=== PATIENT | male | born 1960 | race Caucasian/White ===

== ENCOUNTER → 2019-12-01 10:43 | Outpatient (CLI) | payer BC, SELFPAY ==
--- NOTE | ~2019-12-01 | XR_ITS ---
XR hip BI wo pelvis DATE: 12/01/2019 11:11 INDICATION: Bilateral hip pain TECHNIQUE: Upright AP and lateral views of each hip COMPARISON: None FINDINGS: There is mild osteoarthritic spurring of both femoral heads, left greater than right, consi stent with mild to moderate bilateral hip osteoarthritis. No fracture, dislocation, avascular necrosis or bone destruction is detected. Surgical clips overlie the prostate bed. The pubic symphysis is intact. Sacroiliac joints are not well demonstrated. IMPRESSION: Mild to moderate bilateral hip osteoarthritis Reviewed, dictated and finalized at location A.
--- NOTE | ~2019-12-01 | XR_ITS ---
EXAMINATION: XR knee LT min 4V DATE: 12/01/2019 11:11 INDICATION: Left knee pain. TECHNIQUE: 4 views of left knee were obtained. COMPARISON: Left tibia and fibula radiographs 09/19/2004 FINDINGS: Bone alignment is normal. No fracture. There is mild tricompartmental osteoarthritis. No kn ee joint effusion. IMPRESSION: 1. Mild left knee osteoarthritis. Reviewed, dictated and finalized at location B.
--- NOTE | ~2019-12-01 | XR_ITS ---
EXAMINATION: XR knee RT min 4V DATE: 12/01/2019 11:11 INDICATION: Right knee pain. TECHNIQUE: 4 views of right knee were obtained. COMPARISON: None. FINDINGS: Bone alignment is normal. No fracture. There is mild tricompartmental osteoarthritis. No kn ee joint effusion. IMPRESSION: 1. Mild right knee osteoarthritis. Reviewed, dictated and finalized at location B.
== END ==
PROVIDERS: PCP Family Medicine; Visit Provider Family Medicine
DX: M16.0 Bilateral primary osteoarthritis of hip (principal); M17.0 Bilateral primary osteoarthritis of knee
CPT/HCPCS: 73521; 73564

== ENCOUNTER 2020-03-17 01:26 | Outpatient (CLI) | payer BC, SELFPAY ==
[2020-03-17 21:24] LABS: SARS-CoV-2 RNA PCR Negative
== END 2020-03-17 01:27 | disposition home or self-care (01) ==
LOC: ANHCOVIDDT 01:26
PROVIDERS: PCP Family Medicine; Visit Provider Internal Medicine Gastroenterology
DX: Z01.812 Encounter for preprocedural laboratory examination (principal); Z20.828 Contact with and (suspected) exposure to other viral communicable diseases
CPT/HCPCS: 87635; C9803; U0003

== ENCOUNTER 2020-03-20 01:28 | Day surgery (SDC) | payer BC, SELFPAY ==
[2020-03-10 09:12] VITALS: BMI 29.0
[2020-03-20 07:21] VITALS: BP 147/95; PULSE 79; RESP 20; TEMP 36.8; O2SAT 98; BMI 29.4
[2020-03-20] MEDS: LACTATED RINGERS 1,000 ML 150 ML IV CONT (07:36)
--- NOTE | 2020-03-20 07:54 | WPDGICN ---
Assessment and Plan Assessment and plan (1) Encounter for screening colonoscopy: Code(s): Z12.11 - Encounter for screening for malignant neoplasm of colon Status: Acute Assessment and Plan: Patient presents for screening colonoscopy. He appears to be at average risk for colon polyps. GI Consult Note Consult date/time: 03/20/20 07:54 HPI: John Mg is a 59 year old male Seen in evaluation at the request of Dr. Hayden Mixon. patient presents for needing neoplasia screening. Patient's current weight appetite bowel movements are normal. He denies abdominal pain. He has had normal bowel movements. His family history is noncontributory. Presents today for screening colonoscopy. Review of Systems Review of Systems: All systems reviewed & are unremarkable except as noted in HPI and below PMFSH Past Medical History Medical History (Updated 03/20/20 @ 07:55 by Jhony Teague MD) Anxiety Hypertension Family History Family History (Updated 12/16/13 @ 07:13 by DOCTOR UNKNOWN) Sibling Family history of blood dyscrasia Other Hypertension Social History Social History Smoking status: Never smoker Alcohol intake: current Drinks per week: 2 Alcohol use details: MAY HAVE 1 OR 2 DRINKS PER WEEK Substance use: never Substance use type: does not use Living arrangements: with family Spiritual care concerns: No Meds Home Medications and Allergies Home Medications Medication Instructions Recorded Confirmed Type amlodipine 5 mg PO DAILY 03/10/20 03/10/20 History losartan 100 mg PO DAILY 03/10/20 03/10/20 History oxybutynin chloride 15 mg PO DAILY 03/10/20 03/10/20 History tamsulosin 0.4 mg PO DAILY 03/10/20 03/10/20 History Allergies Allergy/AdvReac Type Severity Reaction Status Date / Time No Known Allergies Allergy Verified 03/20/20 07:20 Vital Signs Vital Signs - 24 hr 03/20/20 07:21 Temperature 98.2 F Pulse Rate 79 Respiratory Rate 20 Blood Pressure 147/95 H Pulse Oximetry 98 Exam Narrative: Exam Narrative: Physical exam reveals Vital Signs to be stable. HEENT exam unremarkable. Lungs are clear to auscultation and percussion. Heart is without murmur or extra sounds. Abdominal exam bowel sounds are present soft nontender with no organomegaly. Digital external rectal exam is normal.
--- NOTE | 2020-03-20 07:54 | WPDANESEPPF ---
Anes - Initial Pre Proc Eval Procedure: Operation Date: 03/20/20 08:30 Proposed Procedures p Screening Colonoscopy - Jhony Teague MD Date/Time: 03/20/20 07:54 Surgeon: Jhony Teague MD Pre Op Diagnosis: Neoplasm Screening Patient Data Age: 59 Gender: M Height: 5 ft 7 in Weight: 85.3 kg Last Vital Signs Temp 98.2 F 03/20/20 07:21 Pulse 79 03/20/20 07:21 Resp 20 03/20/20 07:21 BP 147/95 H 03/20/20 07:21 Pulse Ox 98 03/20/20 07:21 Allergies Allergy/AdvReac Type Severity Reaction Status Date / Time No Known Allergies Allergy Verified 03/20/20 07:20 Home Medications Medication Instructions Recorded Confirmed Type amlodipine 5 mg PO DAILY 03/10/20 03/10/20 History losartan 100 mg PO DAILY 03/10/20 03/10/20 History oxybutynin chloride 15 mg PO DAILY 03/10/20 03/10/20 History tamsulosin 0.4 mg PO DAILY 03/10/20 03/10/20 History Patient hx anesthesia problems: none Family hx anesthesia problems: none PMFSH Past Medical History Medical History (Updated 03/20/20 @ 07:53 by Jerrell Reynolds MD) Anxiety Hypertension Family History Family History (Updated 12/16/13 @ 07:13 by DOCTOR UNKNOWN) Sibling Family history of blood dyscrasia Other Hypertension Social History Social History Smoking status: Never smoker Alcohol intake: current Drinks per week: 2 Alcohol use details: MAY HAVE 1 OR 2 DRINKS PER WEEK Substance use: never Substance use type: does not use Living arrangements: with family Spiritual care concerns: No Anes - Eval Final PreProcedure Day of Procedure 03/20/20 07:54 Patient weight: normal Heart: regular rate and rhythm Lungs: clear to auscultation Airway: Mallampati scale class II Neurological: alert and oriented Last oral intake: >/= 8 hours ASA classification: II Emergent: no Anesthetic plan: proceed Anesthesia type and monitoring: general GIVS and standard monitoring Informed Consent: The patient's anesthetic plan and its attendant risks and benefits were discussed with the patient/family/POA. Questions were solicited and answers provided to the satisfaction of the patient/family/POA.
[2020-03-20 08:14] VITALS: BP 101/64; PULSE 66; RESP 25; O2SAT 98
[2020-03-20 08:24] VITALS: BP 114/43; PULSE 69; RESP 21; O2SAT 97
[2020-03-20 08:34] VITALS: BP 125/89; PULSE 71; RESP 24; O2SAT 98
== END 2020-03-20 08:40 | disposition home or self-care (01) ==
PROVIDERS: PCP Family Medicine; Visit Provider Internal Medicine Gastroenterology
PROC: 0DJD8ZZ Inspection of Lower Intestinal Tract, Via Natural or Artificial Opening Endoscopic (ICD-10-PCS; CPT 45378; principal; 2020-03-20 08:30)
DX: Z12.11 Encounter for screening for malignant neoplasm of colon (principal); I10 Essential (primary) hypertension; F41.9 Anxiety disorder, unspecified; K64.8 Other hemorrhoids
CPT/HCPCS: 45378; J2001; J2704; J7120

== ENCOUNTER → 2020-12-01 15:12 | Outpatient (CLI) | payer BC, SELFPAY ==
--- NOTE | ~2020-12-01 | XR_ITS ---
EXAMINATION: XR foot RT min 3V DATE: 12/01/2020 15:31 INDICATION: Right foot injury. TECHNIQUE: 4 views of right foot were obtained. COMPARISON: None. FINDINGS: Bone alignment is normal. No fracture. There is mild osteoarthritis of first metatarsophala ngeal joint and some of the midfoot joints. There are enthesophytes at the posterior and plantar aspe cts of calcaneal tuberosity. IMPRESSION: 1. Mild polyarticular osteoarthritis. Reviewed, dictated and finalized at location A.
--- NOTE | ~2020-12-01 | XR_ITS ---
EXAMINATION: XR ankle RT 2V DATE: 12/01/2020 15:32 INDICATION: Right foot injury. TECHNIQUE: 2 views of right ankle were obtained. COMPARISON: None. FINDINGS: Bone alignment is normal. No fracture. There is mild midfoot osteoarthritis. There are enth esophytes at the posterior and plantar aspects of calcaneal tuberosity. IMPRESSION: 1. Mild midfoot osteoarthritis. Reviewed, dictated and finalized at location A.
== END ==
PROVIDERS: PCP Internal Medicine; Visit Provider Internal Medicine
DX: S99.929A Unspecified injury of unspecified foot, initial encounter (principal); M19.071 Primary osteoarthritis, right ankle and foot
CPT/HCPCS: 73600; 73630

== ENCOUNTER 2022-05-16 10:02 | Outpatient (CLI) | payer BC, SELFPAY ==
--- NOTE | ~2022-05-16 | US_ITS ---
EXAMINATION: US soft tissue head and neck DATE: 05/16/2022 10:39 INDICATION: Localized swelling, mass and lump, neck. Lump posterior to left ear. TECHNIQUE: Multiple grayscale and Doppler ultrasound images of the head and neck were obtained. COMPARISON: Head CT 09/28/2009 FINDINGS: Posterior to the left ear, there is a 4.0 x 1.6 x 2.8 cm mass that is hypoechoic to subcuta neous fat. IMPRESSION: 1. 4.0 cm mass posterior to the left ear, which may be benign or malignant. Neck CT with contrast is recommended. Reviewed, dictated and finalized at location A. L CLEANER IMPRESSION: 1. 4.0 cm mass posterior to the left ear, which may be benign or malignant. Nec k CT with contrast is recommended.
== END 2022-05-16 10:03 | disposition home or self-care (01) ==
PROVIDERS: PCP Internal Medicine; Visit Provider Nurse Practitioner
DX: R22.1 Localized swelling, mass and lump, neck (principal)
CPT/HCPCS: 76536

== ENCOUNTER 2022-06-03 07:41 | Outpatient (CLI) | payer BC, SELFPAY ==
--- NOTE | ~2022-06-03 | CT_ITS ---
EXAMINATION: CT soft tissue neck w con DATE: 06/03/2022 08:13 INDICATION: Neck mass. TECHNIQUE: Computed tomography (CT) of the neck was performed with 75 mL Omnipaque-350 intravenous co ntrast. Automated exposure control and iterative reconstruction technique were employed. The dose-ifeanyi gth product was 596.16 mGy-cm. COMPARISON: Ultrasound 05/16/2022 FINDINGS: There is a 2.4 x 1.1 x 3.4 cm intramuscular lipoma in the left posterior neck posterior to the left mastoid process. There are no pathologically enlarged lymph nodes. There is 0% stenosis of t he proximal internal carotid arteries relative to normal distal artery lumen diameters. There is muco sai thickening in the paranasal sinuses. The mastoid air cells are normal. There is moderate cervical spondylosis. IMPRESSION: 1. 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 Reviewed, dictated and finalized at location A. ITY ASSURANCE IMPRESSION: 1. 3.4 cm intramuscular lipoma in the left posterior neck correlating with the ultrasound abnormality.
[2022-06-03 08:07] LABS: Estimated Glomerular Filt Rate > 60
== END 2022-06-03 07:42 | disposition home or self-care (01) ==
PROVIDERS: PCP Internal Medicine; Visit Provider Nurse Practitioner
DX: D17.9 Benign lipomatous neoplasm, unspecified (principal)
CPT/HCPCS: 70491; Q9967

== ENCOUNTER 2022-07-29 00:03 | Day surgery (SDC) | payer BC, SELFPAY ==
[2022-07-22 14:39] VITALS: BMI 30.4
--- NOTE | 2022-07-22 14:53 | PC.NURSE ---
Report to the Outpatient Waiting Room, entrance under the green pavilion located off [facility], at time _1130 on date _07/29/22_. Planned Procedure Time: _1330- . Time changes happen often and if your time is changed the preop area will call you the afternoon before. - You and your visitor will be asked to self-screen and do not enter if you have any COVID symptoms. - Only one visitor is requested with a max of two and NO children visitors are allowed at this time. - The patient visitor may be requested to leave or wait in car when not with patient due to distancing restrictions. - A mask is optional within the hospital at this time. Patients may have clear liquids (water, carbonated beverages, clear teas, apple juice) until 3 hours prior to surgery with a maximum of 20 ounces. - No food from midnight until time of surgery Take the following medications with a SIP of water the morning of surgery: __TAKE YOUR MEDS AT NIGHT PER USUAL DO NOT STOP ANY OF YOUR OTHER PRESCRIPTION MEDICATIONS PRIOR TO SURGERY ?EXCEPT THE FOLLOWING Medications to discontinue per physician N/A Date to take last dose___N/A Please no make-up, nail danish, hairspray, perfume, deodorant, or body powder the day of surgery. No jewelry (including any body piercings) or valuables the day of surgery, leave them at home. Please take a shower or bath the night before, or the morning of, surgery with an antibacterial soap. Wear comfortable, loose fitting clothing. - Jewelry must be removed prior to entering the operating room. Rings and piercings that are not removed may be cut off. - The hospital will not accept responsibility for valuables. - Please leave all valuables, including medications, at home the day of surgery. If you are going home after surgery, a licensed public transit bus driver must drive you home. - NO public transportation without another adult if you receive anesthesia. - We recommend that an adult stay with you for 24 hours following discharge. - We also recommend that you do not drive, make important decision, drink alcoholic beverages, or take any drugs that were not prescribed by your health care provider for at least 24 hours after your discharge time. Follow any additional instructions given to you from your surgeon If you or anyone in your household have experienced Covid symptoms in the past week, please notify your surgeon or the nurse liaison at the phone number below for possible testing. Telephone instructions given to _DANTE__and asked if any additional questions and then verbalized understanding. Patient advised to call surgeon office or pre surgery nurse liaison [phone] if any additional questions.
[2022-07-29 11:50] VITALS: BP 145/87; PULSE 79; RESP 16; TEMP 36.4; O2SAT 97
--- NOTE | 2022-07-29 12:16 | WPDANESEPPF ---
Anes - Initial Pre Proc Eval Procedure: Operation Date: 07/29/22 13:30 Proposed Procedures p Excision Intramuscular Left Posterior Neck Mass - Ney Chávez DO Date/Time: 07/29/22 12:16 Surgeon: Ney Chávez DO Pre Op Diagnosis: 4 cm Mass Left Posterior Neck Patient Data Age: 61 Gender: M Height: 1.7 m Weight: 90 kg Last Vital Signs Temp 36.4 C 07/29/22 11:50 Pulse 79 07/29/22 11:50 Resp 16 07/29/22 11:50 BP 145/87 H 07/29/22 11:50 Pulse Ox 97 07/29/22 11:50 O2 Del Method Room Air 07/29/22 11:50 Allergies Allergy/AdvReac Type Severity Reaction Status Date / Time No Known Allergies Allergy Verified 07/29/22 12:17 Home Medications Medication Instructions Recorded Confirmed Type tamsulosin 0.4 mg capsule 0.4 mg PO DAILY 03/10/20 07/29/22 History amlodipine 5 mg tablet 5 mg PO DAILY #90 tabs 06/25/22 07/29/22 Rx losartan 100 mg tablet 100 mg PO DAILY #90 tabs 06/25/22 07/29/22 Rx Patient hx anesthesia problems: none Family hx anesthesia problems: none Results Review: All pre-operative results and documents have been reviewed as part of the pre-operative evaluation. REPLACED BY [facility] Past Medical History Medical History Anxiety Hypertension Surgical History Surgical History History of inguinal hernia repair, bilateral History of prostate surgery Family History Family History Sibling Family history of blood dyscrasia Father Stomach cancer Other Hypertension Social History Social History Smoking status: Never smoker Second hand tobacco smoke exposure: No Alcohol intake: never Substance use: never Substance use type: does not use Lack of Transportation: No Lack of Food: Never True Concerned About Future Housing: No Difficulty Paying Gas/Electric Bills: No Difficulty Paying for Meds: No Currently Unemployed: No Education: High School Diploma/GED Difficulty w/ Childcare or Family Care: No Living arrangements: with family Spiritual care concerns: No Anes - Eval Final PreProcedure Day of Procedure 07/29/22 12:16 Patient weight: obese Heart: regular rate and rhythm Lungs: clear to auscultation Airway: Mallampati scale class III Neurological: alert and oriented Last oral intake: >/= 8 hours ASA classification: III Emergent: no Anesthetic plan: proceed Anesthesia type and monitoring: general ETT and standard monitoring Results Review: All pre-operative results and documents have been reviewed as part of the pre-operative evaluation. Informed Consent: The patient's anesthetic plan and its attendant risks and benefits were discussed with the patient/family/POA. Questions were solicited and answers provided to the satisfaction of the patient/family/POA.
[2022-07-29] MEDS: LACTATED RINGERS 1,000 ML 30 ML IV CONT (12:42)
--- NOTE | 2022-07-29 13:27 | WPDHPUPDATE1 ---
History and Physical Update Update Date/Time: 07/29/22 13:27 History and Physical has been reviewed, including an updated exam of the patient. There are NO changes in the patient's condition. Risks, benefits, and alternatives have been discussed and questions answered. Patient agrees to proceed with procedure.
--- NOTE | 2022-07-29 13:27 | PM.IMHP ---
H&P: HPI History of Present Illness Date/Time: 07/29/22 13:27 Chief Complaint: Posterior neck mass Narrative: This is a 61-year-old man presents for posterior neck mass excision. He denies any changes since last seen in the office. Review of Systems Review of Systems: All systems reviewed & are unremarkable except as noted in HPI and below Constitutional: Constitutional: Denies chills, Denies fever(s), Denies headache(s) and Denies weight loss Eyes: Eyes: Denies change in vision ENT: Denies dizziness, Denies headache(s), Denies neck mass and Denies throat swelling Cardiovascular: Cardiovascular: Denies chest pain, Denies lightheadedness and Denies dyspnea Respiratory: Respiratory: Denies cough, Denies dyspnea and Denies wheezing Gastrointestinal: Gastrointestinal: Denies abdominal pain, Denies change in bowel habits, Denies nausea and Denies vomiting Genitourinary: Genitourinary: Denies hematuria and Denies dysuria Musculoskeletal: Musculoskeletal: Reports as per HPI Integumentary/Breasts: Skin/Breast: Reports as per HPI Neurologic: Denies dizziness and Denies headache(s) Allergic/Immunologic: Allergic/Immunologic: Denies throat swelling and Denies wheezing PMFSH Past Medical History Medical History Anxiety Hypertension Surgical History Surgical History History of inguinal hernia repair, bilateral History of prostate surgery Family History Family History Sibling Family history of blood dyscrasia Father Stomach cancer Other Hypertension Social History Social History Smoking status: Never smoker Second hand tobacco smoke exposure: No Alcohol intake: never Substance use: never Substance use type: does not use Lack of Transportation: No Lack of Food: Never True Concerned About Future Housing: No Difficulty Paying Gas/Electric Bills: No Difficulty Paying for Meds: No Currently Unemployed: No Education: High School Diploma/GED Difficulty w/ Childcare or Family Care: No Living arrangements: with family Spiritual care concerns: No Meds Home Medications and Allergies Home Medications Medication Instructions Recorded Confirmed Type tamsulosin 0.4 mg capsule 0.4 mg PO DAILY 03/10/20 07/29/22 History amlodipine 5 mg tablet 5 mg PO DAILY #90 tabs 06/25/22 07/29/22 Rx losartan 100 mg tablet 100 mg PO DAILY #90 tabs 06/25/22 07/29/22 Rx Allergies Allergy/AdvReac Type Severity Reaction Status Date / Time No Known Allergies Allergy Verified 07/29/22 12:17 Vital Signs Vital Signs - 24 hr 07/29/22 11:50 Temperature 36.4 C Pulse Rate 79 Respiratory Rate 16 Blood Pressure 145/87 H Pulse Oximetry 97 Oxygen Delivery Room Air Exam Const: General: no acute distress and alert Orientation/consciousness: patient oriented x3 HENMT: Head: normocephalic and atraumatic Ears: hearing grossly normal bilaterally Face/Nose/Sinus: Normal nares present Mouth: Yes Normal oral and palatal mucosa present Eyes: Periorbital: periorbital findings normal Sclera: sclerae normal EOM: EOMs intact bilaterally Neck: Neck: normal visual inspection, no lymphadenopathy and trachea midline Chest: Chest palpation & inspection: normal inspection of the chest Resp: Effort & Inspection: normal respiratory effort Auscultation: clear to auscultation bilaterally Cardio: Jugular venous distension: no JVD Rate: regular rate Rhythm: regular rhythm Heart sounds: S1 normal heart sound present and S2 normal heart sound present Peripheral pulses: Peripheral pulses 2+ throughout GI: Inspection: normal to inspection GI Palp: Yes Soft to palpation, No Tenderness to palpation present (GI), No Guarding due to palpation present (GI) and No Rebound tenderness present Percussion:
[2022-07-29] MEDS: ceFAZolin 2 GM/D5W 50 ML 2 GM/50 ML BAG IVPB (13:42)
[2022-07-29] MEDS: LIDO 1%/EPINEPHRINE 1:100,000 50 ML VIAL 30 ML INFILTRATE (14:03)
--- NOTE | 2022-07-29 14:26 | P.OP_ITS ---
Procedure Note - Detailed Date of Procedure 07/29/22 Pre-op Diagnosis 4 cm Mass Left Posterior Neck Post-op Diagnosis Same Procedure Performed 1. Excision of 4 cm intramuscular left posterior neck mass 2. Layered closure Surgeon Ney Chávez, DO Anesthesia MAC and Local (1% lidocaine with epinephrine) Indications This is a 61-year-old man who presents with a left posterior mass that he just noticed a couple months ago. He has had ultrasound and CT which has shown evidence of what is likely a lipoma within the intramuscular region in the left posterior neck near the base of the skull. He has some discomfort in the area and feels that it has gotten slightly larger. Discussions were made with the pa walter about treatment options and decision was made to proceed with excision 4 cm intramuscular left posterior neck mass. Findings Excision of 4 cm intramuscular left posterior neck mass was performed. The mass appeared to be in the left posterior neck near the base of the skull within the posterior attachment of the left sternocleidomastoid muscle. The mass appeared to be a lipoma. It was completely excised and sent to the lab for pathology. A layered closure was then performed using 2-0 Vicryl simple interrupted sutures in the fascia followed by 4-0 Monocryl running subcuticular suture. Description of Procedure Procedure as well as risks, benefits, and alternatives were discussed with the patient. Written consent was obtained and placed in chart prior to procedure. Patient was brought back to surgical suite. He was placed in right lateral decubitus position. Time-out was done to confirm patient and procedure. IV sedation was then administered by the anesthesia department. His left posterior neck region was prepped and draped in sterile fashion using chlorhexidine prep. 1% lidocaine with epinephrine was infiltrated locally around mass. A 4 cm oblique incision was then made over the mass using a 15 blade scalpel. Electrocautery was used for hemostasis and for dissection through subcutaneous tissue. The fascia overlying the left sternocleidomastoid muscle was identified and incised with electrocautery. The mass was identified just deep to this between the muscle fibers of the left sternocleidomastoid muscle. The mass was carefully bluntly dissected free from the surrounding muscle. It was completely excised sent to lab for pathology. The wound bed was then inspected and no other masses were identified. Hemostasis was achieved with electrocautery. Fascia was then closed over the muscle using 2-0 Vicryl simple interrupted sutures. The skin was then approximated using 4-0 Monocryl running subcuticular suture. Exofin glue was then applied on top. The patient was then awakened from anesthesia and transferred to recovery. Estimated Blood Loss 5 Pathology Yes (4 cm intramuscular left posterior neck mass) Complications No immediate complications Condition Stable Disposition Same day [facility] Billing Surgery - Charge Forward: Surgery Billing
[2022-07-29 14:35] VITALS: BP 112/60; PULSE 78; RESP 16; O2SAT 94
[2022-07-29 15:00] VITALS: BP 122/74; PULSE 69; RESP 12
== END 2022-07-29 15:25 | disposition home or self-care (01) ==
PROVIDERS: PCP Internal Medicine; Visit Provider Surgery
PROC: (CPT 21556; principal; 2022-07-29 13:30)
DX: D17.0 Benign lipomatous neoplasm of skin and subcutaneous tissue of head, face and neck (principal); I10 Essential (primary) hypertension; E66.9 Obesity, unspecified; Z68.31 Body mass index [BMI] 31.0-31.9, adult
CPT/HCPCS: 21556; 88304; A9270; J0690; J2250; J2704; J3010; J7120

== ENCOUNTER 2023-02-19 10:36 | Emergency (ER) | payer BC, SELFPAY ==
--- NOTE | ~2023-02-19 | XR_ITS ---
EXAMINATION: XR finger 2nd RT min 2V DATE: 02/19/2023 11:23 INDICATION: Right hand second digit injury. TECHNIQUE: 4 views of right hand second digit were obtained. COMPARISON: None. FINDINGS: There is hyperextension of second proximal interphalangeal joint. There is an avulsion frac ture of dorsal base of second distal phalanx with 1 mm distraction. 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 IMPRESSION: 1. Avulsion fracture of dorsal base of second distal phalanx. Reviewed, dictated and finalized at location E.
--- NOTE | 2023-02-19 11:12 | ED.UPPEXIN ---
HPI - Extremity Injury (Upper) General Chief Complaint: Extremity Injury, Upper Stated Complaint: finger injury(rt hand) Time Seen by Provider: 02/19/23 11:13 Source: patient Mode of arrival: ambulatory Limitations: no limitations History of Present Illness HPI narrative: Patient is a 62-year-old male who presents with right index finger pain and swelling after getting it caught in bow and smashed into site. Patient states it was cough for approximately 5 minutes before he was able to get it out. Reports significant tenderness and there has been bleeding around the nail bed. Denies any numbness or tingling. Related Data Home Medications Medication Instructions Recorded Confirmed tamsulosin 0.4 mg capsule 0.4 mg PO DAILY 03/10/20 02/19/23 Allergies Allergy/AdvReac Type Severity Reaction Status Date / Time No Known Allergies Allergy Verified 01/01/23 07:25 Review of Systems Review of Systems: All systems reviewed & are unremarkable except as noted in HPI and below Constitutional: Constitutional: Denies body ache(s), Denies chills, Denies fatigue, Denies fever(s), Denies headache(s), Denies malaise and Denies weakness Eyes: Eyes: Denies blurry vision, Denies irritation and Denies loss of vision ENT: Denies otalgia, Denies headache(s), Denies nasal discharge, Denies sinus pain and Denies sore throat Cardiovascular: Cardiovascular: Denies chest pain, Denies irregular heart rhythm and Denies dyspnea Respiratory: Respiratory: Denies dyspnea Gastrointestinal: Gastrointestinal: Denies abdominal pain, Denies melena, Denies hematochezia, Denies diarrhea, Denies nausea and Denies vomiting Musculoskeletal: Musculoskeletal: Denies back pain, Denies myalgias, Reports arthralgias and Reports joint swelling Integumentary/Breasts: Skin/Breast: Denies pruritus and Denies rash Neurologic: Denies headache(s), Denies loss of vision and Denies weakness Psychiatric: Psychiatric: Reports no additional psychiatric complaints Endocrine: Endocrine: Denies fatigue PMFSH Past Medical History Medical History Anxiety Hypertension Surgical History Surgical History H/O excision of mass 07/29/22 1. Excision of 4 cm intramuscular left posterior neck mass, Layered closure History of inguinal hernia repair, bilateral History of prostate surgery Family History Family History Sibling Family history of blood dyscrasia Father Stomach cancer Other Hypertension Social History Social History Smoking status: Never smoker Second hand tobacco smoke exposure: No Alcohol intake: never Substance use: never Substance use type: does not use Lack of Transportation: No Lack of Food: Never True Concerned About Future Housing: No Difficulty Paying Gas/Electric Bills: No Difficulty Paying for Meds: No Currently Unemployed: No Education: High School Diploma/GED Difficulty w/ Childcare or Family Care: No Living arrangements: with family Spiritual care concerns: No Comments At time of signature, agree with nursing past medical, surgical, social and family history. There is no relevant family history pertinent to the presenting complaint. Exam Const: General: cooperative, healthy appearing, comfortable, no acute distress and well nourished Nutritional Appearance: well nourished Orientation/consciousness: patient oriented x3 Limitations: no limitations HENMT: Head: normal to inspection, normocephalic and atraumatic Ears: hearing grossly normal bilaterally and external ears normal Face/Nose/Sinus: Normal external nose present, normal facial exam and face symmetric Face and sinus: normal facial exam and face symmetric Mouth: Yes lip normal Eyes: General: appearance normal, both eyes and al
[2023-02-19 11:16] VITALS: BP 137/88; PULSE 75; RESP 18; TEMP 36.3; O2SAT 100
== END 2023-02-19 12:03 | disposition home or self-care (01) ==
PROVIDERS: Emergency Provider Nurse Practitioner Family; PCP Family Medicine
DX: S62.660A Nondisplaced fracture of distal phalanx of right index finger, initial encounter for closed fracture (principal); W23.0XXA Caught, crushed, jammed, or pinched between moving objects, initial encounter; I10 Essential (primary) hypertension; F41.9 Anxiety disorder, unspecified
CPT/HCPCS: 29130; 73140; 99214; G0463

== ENCOUNTER 2023-03-26 13:52 | Outpatient (CLI) | payer BC, SELFPAY ==
--- NOTE | ~2023-03-26 | XR_ITS ---
XR finger 2nd RT min 2V 03/26/2023 14:19 Indication: Mallet finger right second finger Procedure: 3 views right second finger Comparison: 02/19/2023 Findings: There is an intra-articular avulsion fracture proximal dorsal margin second distal phalanx with flexion deformity. Mild osteoarthritis. Mild soft tissue swelling overlying the fracture. Impression: 1: Intra-articular avulsion fracture dorsal margin second distal phalanx. Reviewed, dictated and finalized at location L. 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
== END 2023-03-26 13:53 | disposition home or self-care (01) ==
PROVIDERS: PCP Family Medicine; Visit Provider Physician Assistant Surgical
DX: M20.011 Mallet finger of right finger(s) (principal); S62.630A Displaced fracture of distal phalanx of right index finger, initial encounter for closed fracture
CPT/HCPCS: 73140

== ENCOUNTER 2024-03-30 09:37 | Outpatient (CLI) | payer BC, SELFPAY ==
--- NOTE | ~2024-03-30 | MR_ITS ---
MRI of the right knee Clinical history: Pain Technique: Coronal proton density and proton density-weighted images, sagittal proton-density and T2 fat-sat images, and axial proton-density fat-saturated images were acquired. Findings: Anterior and posterior cruciate ligaments are intact. Medial collateral ligament and the la teral collateral ligament complex are intact. Popliteus tendon is intact. There is complex tearing of the anterior horn of the lateral meniscus, predominantly horizontal/flap tear present. Medial meniscus intact, without evidence of tear. Focal mild chondromalacia along the medial patellar facet. There is diffuse moderate chondromalacia o f the femoral trochlea. There is very small focal moderate to high-grade chondral lesion at the later al femoral condyle. Small lateral joint line osteophyte are present. Extensor mechanism is intact. Small joint effusion present. There is minimal Pope's cyst. Impression: Tearing of the anterior horn lateral meniscus, as detailed above. Overall mild degenerative changes of the knee, as detailed above. Small joint effusion with minimal Pope's cyst. Reviewed, dictated and finalized at location . 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 Overall mild degenerative changes of the knee, as detailed above. Small joint effusion with minimal Pope's cyst.
== END 2024-03-30 09:38 | disposition home or self-care (01) ==
LOC: MICIMG 09:39
PROVIDERS: PCP Physician Assistant Surgical; Visit Provider Physician Assistant Surgical
DX: S83.281A Other tear of lateral meniscus, current injury, right knee, initial encounter (principal); X58.XXXA Exposure to other specified factors, initial encounter; M17.11 Unilateral primary osteoarthritis, right knee; M25.461 Effusion, right knee; M71.21 Synovial cyst of popliteal space [Baker], right knee
CPT/HCPCS: 73721

== ENCOUNTER 2024-06-04 09:08 | Outpatient (CLI) | payer BC, SELFPAY ==
--- OUTSIDE RECORDS SUMMARY | 2024-06-04 09:17 | XMS_ITS | Clinical Summary ---
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 Gender Identity Not on file Sexual Orientation Not on file Plan of Treatment Health Maintenance Due Date Last Done Comments Hepatitis C Virus (HCV) Screening 1960 TdaP Immunization 1960 Colonoscopy 10/29/2004 Colorectal Cancer Screening 10/29/2004 Cologuard 10/29/2009 Immunochemical Fecal Occult Blood 10/29/2009 Pneumococcal Immunization (50+ years) (1 of 1 - PCV) 10/29/2009 Zoster Immunization (1 of 2) 10/29/2009 PSA Discussion 10/29/2014 Influenza Immunization (#1) 12/21/202312/20, 01/14/2019, 01/01/2018, Additional history exists SARS-COV-2 Immunization ( season) 2023 Respiratory Syncytial Virus (RSV) Immunization (Adult) (1 - 1-dose 75+ series) 10/29/2034 Hepatitis B Immunization Aged Out No longer eligible based on patient's age to complete this topic Meningococcal Immunization (ACWY) Aged Out No longer eligible based on patient's age to complete this topic Pneumococcal Immunization Combined Aged Out No longer eligible based on patient's age to complete this topic Rotavirus Immunization Aged Out No lo nger eligible based on patient's age to complete this topic
--- OUTSIDE RECORDS SUMMARY | 2024-06-04 09:18 | XMS_ITS | Data Portability ---
Author Organization [place] - [facility], Main Office Address [address] [place] [address] Care Team Providers Care Want Ad Supervisor Name Role Phone SERGE TRINIDAD Primary Care Provider [phone] SERGE TRINIDAD Referring Provider [phone] Assessment Encounter Date Assessment Date Assessment LastModified by Organization Details LastModified Time 03/09/2024 03/09/2024 The patient does have mild primary osteoarthritis in both knees x-rays show pretty similar findings bilaterally with some mild narrowing in the medial compartment as well as small marginal osteophytes off the medial and lateral patella bilaterally. He has signs and symptoms consistent with likely meniscal pathology. We talked about treatment options today I told him we can give him some oral steroids to help with the swelling in his knee and the pain and discomfort we talked about icing the knee and working on range of motion I offered him formal therapy he declined I think we should get an MRI scan of the knee to check for meniscal pathology he agreed he would like to get that done as soon as possible. I have told him we will hold off on a cortisone injection for now until we see what is going on if he does need knee arthroscopy in the near future we would hold off on cortisone if the MRI scan is negative then we may proceed with a cortisone injection. The patient will see Dr. Byrne for follow up with the MRI scan. They will talk about his treatment options from there depending on the findings. The patient voiced understanding agrees with the above plan he will call for any further problems difficulties or questions. Not available 03/09/2024 14:33:55 03/31/2024 03/31/2024 HPI: Patient presents today for a follow up on MRI results of right knee. He was evaluated by MUNIRA Felipe on 03-09-2024, was prescribed prednisone and declined PT. He reports feeling better since his last visit. Today, he localizes his pain to the lateral side. He denies experiencing any catching or locking sensations. He mentions that his pain is worse first thing in the morning but improves as he starts to move. Rates pain today as 3/10. Physical Exam: General: Normal appearance. No acute distress. Inspection: No evidence of swelling, erythema, bruising or deformity. Palpation: Minimal tenderness over the medial joint line. ROM: Normal ROM. Crepitus with ROM. Gait: Normal gait. Special Test: Positive Charito, - minimal pain, Negative Lachmann, No valgus or varus instability. Motor: 5/5 strength in all other planes. Sensation: Lower extremity sensation intact. Imaging: MRI reviewed with Dr. Byrne. Anterior lateral meniscus tear, Assessment & Plan: He is not having any mechanical symptoms or gross instability, and has improved since last vist we will continue to treat conservatively. Declined formal PT. Home exercise program given to patient. He states he will do them everyday. Prescribed Meloxicam for pain. Follow Up: Will have him follow up before his trip in April to see how he is doing. If no improvement with the anti-inflammatory or home exercies we can consider an injection. All questions were answered. Patient verbalized understanding of treatment plan [email or web address] Not available 03/31/2024 11:02:51 05/10/2024 05/10/2024 By previous MRI and exam the patient is noted have a lateral meniscal tear of the right knee. The patient is doing well with conservative measures. He had seen Dr. Byrne and was placed on meloxicam 15 mg daily. He is doing very well he wanted to know about the surgical intervention I have advised him we only do this in cases where someone is having significant mechanical symptoms or pain that is unrelieved by other measures. He agreed he would rather avoid surgery particularly since he is feeling so good. Some days the pain is about a 3 on a scale of 1-10 today it is a 1 and really not bothering him. We talked about the fact that if he is on meloxicam chronically he should see his primary care physician every 6 months for routine laboratory work to make sure that his kidney function and other parameters are normal and well-maintained. He is otherwise pretty healthy and is at low risk. We also talked about cortisone injection today I have advised him we only do this when someone is having significant symptoms so we will save it for another time in case he does have pain that returns. For now he is doing well we will see him back as needed he voiced understanding and agreed with the above plan call for any further problems difficulties or questions. Not available 05/10/2024 09:51:24 06/02/2024 06/02/2024 63-year-old male presents for follow-up of his right knee. He reports feeling the same or worse, worse with activities especially going up and down stairs. He denies having any catching or locking. He rates his pain as 4/10. Pain is located over the lateral aspect of the knee. He has been taking meloxicam. He has been doing home exercises, he says that he does not want to do formal physical therapy or consider shots for the knee. Tenderness of the lateral joint line. Nonantalgic gait. Range of motion 0-140. Positive Chio's. No crepitus, catching, or locking. X-rays of the knee were reviewed, demonstrating preserved joint space. MRI was reviewed, demonstrating signal within the anterior horn and body of the lateral meniscus. He also has some chondromalacia, possible cartilage flap of the femoral condyle We discussed treatment options given his failure conservative management of anti-inflammatori es and a home exercise program so far with persistent knee pain. Options include going to formal physical therapy, doing a cortisone injection for the knee, neither of which she wanted to consider. We discussed that surgery for knee arthroscopy and clean out of the meniscus or cartilage is another possibility, but he does not have significant mechanical symptoms, and we discussed he may or may not have improvement in his pain after the procedure especially given his pre-existing wear and tear. We discussed the only definitive treatment for arthritis and wear tear would be knee replacement which he is not ready for at this point. After extensive discussion he wanted to try to proceed with surgery and does not want to consider a cortisone injection. Risks, benefits, and alternatives to surgery were discussed with the patient. Risks include but are not limited to pain, stiffness, infection, bleeding, blood clot, injury to other structures including nerves or blood vessels, need for future surgery, and anesthesia risks. We discussed the goal of surgery is to improve symptoms but there is no guarantee of improvement and it is possible the patient's condition is worse after surgery. Patient agreed and would like to proceed. [email or web address] Not available 06/02/2024 10:43:41 Plan of Treatment Reminders Order Date Submit Date Provider Last Modified By Organization Details Last Modified Time Details Appointments Surgery 2024 06:30A M Vik Byrne MD Not available Not available Not available Post-Op 10 2024 08:40A M Shelli De Luna NP Not available Not available Not available Lab None recorded. Referral None recorded. Procedures None recorded. Surgeries None recorded. Imaging XR, knee 2023 024 [email or web address] [facility] [place], [address], [place], [address], 03/09/2024 15:24:58 MRI, knee, w/o contrast - Please give patient disc ..... 2023 024 [facility], [address], [place], [address], 03/30/2024 12:02:53 Medication Orders meloxicam 15 mg tablet 2023 024 [email or web address] [id number], [address], [place], [phone], 03/31/2024 11:26:47 prednison e 10 mg tablets in a dose pack 2023 024 [email or web address] [facility] #[id number], [address], [place], [phone], 03/25/2024 11:23:41 Patient TargetsNo targets recorded. Patient InstructionsNo instructions recorded. Reason for Referral None Reported. Results Created Date Observation Date Name Description Value Unit Range Abnormal Flag Note LastModifiedBy Organization Detail LastModifiedTime 10/04/19 21 XR, elbow , 2 view No observ ation record ed. [id number] [facility] [place] [address], [place], [address], 06/19/2022 23:04:27 03/09/20 XR, knee No observ ation record ed. [email or web address] [facility] [place] [address], [place], [address], 03/09/2024 14:34:57 03/30/20 24 03/30/2024 MRI, knee, w/o contr ast No observ ation record ed. [email or web address] [facility] [address], [place], [address], 03/30/2024 12:06:27 Result Notes None recorded. Problems Name Problem SNOMED Code Status Onset Date Resolution Date Notes Provider Name and Address Organization Details Recorded Time Pain of right knee joint 5279520485835 00 Active 2023 Ivette Olvera CNA [facility], [employer] 4 13:46:00 Derangement of right knee 5359280905389 9109 Active 2023 MUNIRA Benitez [address] [facility] [address], [place], [address], [employer] 4 14:35:08 Tear of lateral meniscus of knee 340300221 Active 2024 MUNIRA Benitez [address], [facility] [address], [place], [address], [employer] 5 09:52:14 Problem Notes None recorded. Procedures Surgical History Date Name Laterality Status Provider Name and Address Organization Details Recorded Time Hernia Repair completed Not Available [facility] 06/19/2022 23:02:53 procedure on prostate completed Not Available [facility] 06/19/2022 23:02:53 Foot Surgery completed Ivette Olvera CNA [employer] 03/09/2024 13:44:58 Imaging Results Imaging Date Name Status LastModified by Organiz ation Details LastModified Time 10/03/2020 XR, elbow, 2 view completed [id number] [facility] [place] [address], [place], [address], 06/19/2022 23:04:27 03/09/2024 XR, knee completed [email or web address] [facility] [place] [address], [place], [address], 03/09/2024 14:34:57 03/30/2024 MRI, knee, w/o contrast [email or web address] [address], [place], [address], 03/30/2024 12:06:27 Procedure Notes None recorded. Medical Equipment None Reported. Allergies No known drug allergies Medications Name Sig Start Date Stop Date Status Note LastModified by Organization Details LastModified Time cyclobenzap rine 10 mg tablet TK 1 T PO BID PRF MUSCLE RELAXER 09/13 completed Not Available Not Available Not Available prednisone 10 mg tablet 06/01 completed Not Available Not Available Not Available oxybutynin chloride ER 15 mg tablet,exte nded release 24 hr TK 1 T PO D 09/13 completed Not Available Not Available Not Available hydrocodone 5 mg-acetamin ophen 325 mg tablet TAKE 1 TABLET BY MOUTH EVERY 4 TO 6 HOURS NEEDED FOR PAIN 10/03 completed Not Available Not Available Not Available meloxicam 15 mg tablet TAKE 1 TABLET BY MOUTH EVERY DAY WITH FOOD active Not Available Not Available No t Available amlodipine 5 mg tablet TAKE 1 TABLET BY MOUTH DAILY active Not Available Not Available No t Available prednisone 10 mg tablets in a dose pack Take 1 tab by mouth, 3 times a day for 3 daysTake 1 tab by mouth 2 times a day for 2 daysTake 1 tab by mouth once a day for 1 day 03/25 completed Not Available Not Available Not Available alprazolam 0.5 mg tablet TK 1 T PO BID PRF STRESS 09/13 completed Not Available Not Available Not Available tamsulosin 0.4 mg capsule TAKE 1 CAPSULE BY MOUTH TWICE DAILY active Not Available Not Available No t Available losartan 100 mg tablet TAKE 1 TABLET BY MOUTH DAILY active Not Available Not Available No t Available Suprep Bowel Prep Kit 17.5 gram-3.13 gram-1.6 gram oral solution TK UTD 10/03 completed Not Available Not Available Not Available Vitals Date Recorded Body mass index (BMI) Body height Body weight Provider Name and Address Organization Details Last Updated DateTime 06/19/2022 29 kg/m2 170.18 cm 58008.59 g Not Available [facility] 06/19/2022 23:02:55 Date Recorded Body height Body mass index (BMI) Body weight Provider Name and Address Organization Details Last Updated DateTime 03/09/2024 170.18 cm 29.8 kg/m2 33856.55 g Ivette Olvera CNA [facility] [employer] 03/09/2024 13:43:04 Date Recorded Body height Body mass index (BMI) Body weight Provider Name and Address Organization Details Last Updated DateTime 03/31/2024 170.18 cm 29.8 kg/m2 45917.55 g Shilpa Wright Giselle [facility] 03/31/2024 09:12:18 Date Recorded Body height Body mass index (BMI) Body weight Provider Name and Address Organization Details Last Updated DateTime 05/10/2024 170.18 cm 30.5 kg/m2 87249.51 g Ivette Olvera CNA [facility] 05/10/2024 09:19:21 Date Recorded Body height Body mass index (BMI) Body weight Provider Name and Address Organization Details Last Updated DateTime 06/02/2024 170.18 cm 29.8 kg/m2 53524.55 g Ivette Olvera [employer] [facility] 06/02/2024 09:02:30 Social History Question Answer Notes LastModified by Organizat ion Details LastModified Time Tobacco Smoking Status Never Smoker ALEJO Chamberlain [facility] 03/09/2024 13:43:59 What Is Your Level Of Alcohol Consumption? Occasional [id number] Information not available 06/19/2022 How Much Tobacco Do You Smoke? No [id number] Information not available 06/19/2022 Sex: Unknown Functional Status None recorded. Mental Status None recorded. Family History Relationship Description Onset Age of this Age Resolved Age Notes LastModified by Organization Details LastModified Time Father Family history of malignant neoplasm [id number] Not available 06/19/2022 23:02:53 Mother History of hypertension [id number] Not available 06/19/2022 23:02:53 Father History of hypertension [email or web address] Not available 13:43:41 Medical History Condition Response URINARY/BLADDER/KIDNEY PROBLEMS Y BLOOD DISEASES Y HYPERTENSION Y Past Encounters Encounter ID Performer Location Encounter Start Date Encounter Closed Date Diagnosis/Indication Diagnosis SNOMED-CT Code Diagnosis ICD10 Code Diagnosis Note [id number] [facility] [address] [place] [address] 10/03/2020 00:00:00 10/03/2020 10:35:45 [id number] MUNIRA Benitez [facility] [address] [place] [address] 03/09/2024 13:34:29 03/09/2024 15:24:58 Pain of right knee joint 2423186584 95201 M25.561 Derangemen t of right knee 7150127492 0544137 M23.91 [id number] Debbie Pritchett PA-C [facility] [address] [place] [address] 03/31/2024 09:08:44 03/31/2024 09:32:57 Derangement of right knee 0350677352 9848323 M23.91 Pain of ri ght knee joint 6696665210 10738 M25.864 [id number] MUNIRA Benitez [facility] [address] [place] [address] 05/10/2024 09:17:36 05/10/2024 09:52:54 Derangement of right knee 5380995382 2430965 M23.91 Pain of ri ght knee joint 9999246192 20844 M25.561 Tear of la teral meniscus of knee 329488441 S83.281D [id number] Vik Byrne MD [facility] [address] [place] [address] 06/02/2024 08:58:23 06/02/2024 10:34:55 Derangement of right knee 6933026067 6561166 M23.91 Tear of la teral meniscus of knee 848352696 S83.281D Pain of ri ght knee joint 5159325731 41021 M25.561 Health Concerns Section Related Observation LastModified by Organization Detai ls LastModified Time None Recorded Concern Status LastModified by Organization Details LastModified Time None Recorded Advance Directives Directive None Recorded Payers Encounter Date Sequence Insurance Name Policy Number Policy Cha Covered Member ID Cha Member ID Guarantor Name 03/09/2024 1 [employer] 33[employer]ot [employer] [id number] John Mg 03/31/2024 1 [place] 33Margot Mg [id number] John Mg 05/10/2024 1 [place] 33 John Mg [id number] John Mg 06/02/2024 1 [place] [employer] [place] ([place]O) 33 John Mg [id number] John Mg Notes Date Note Type Note Provider Name and Address Organization Details Recorded Time 03/09/2024 text/html The patient is a 63-year-old male who has a new problem with his right knee. He states about a month ago he was starting to have some twinges of pain in the right knee mostly medially. This over time has progressed to global knee pain. He was limping around a bit but getting by then 4 days ago he was cutting a tree doing lots of heavy lifting twisting and turning on the knee when he started to feel a lot more pain by the time he was done. At that point he really was unable to put much weight on the knee. Pain was so severe he got crutches and started taking ibuprofen 600 mg 3 times a day. He states the knee feels tight and swollen and certainly he can not do any twisting or turning on the knee because of the severe discomfort. Ibuprofen has helped a little bit but he still is using crutches he is hesitant to do much with the knee if he walks on a flat surface and straight-line this helps more but uneven surfaces or twisting or turning causes severe pain. His knee does look swollen he does not have any erythema heat or other signs of infection denies any specific trauma or injury has no history of gout or other infection and no scrapes or cuts to the knee. Despite conservative measures on his own at home symptoms continue today the pain at rest is about a 5 on a scale of 1-10 he comes in today for initial evaluation treatment of right knee pain as described. New past medical history sheet was reviewed and signed on the intake sheet of today's date drug allergies current medications family social history previous surgical history 10 point review of systems was reviewed and discussed in detail today with the patient. MUNIRA Benitez [address], [place], [address], [employer] 03/09/2024 14:35:43 05/10/2024 text/html Patient returns for recheck of his right knee. The patient has a lateral meniscal tear this was diagnosed previously by MRI scan after complaining of some pain. This was done back in February of 2024. The patient has been started meloxicam and this has helped quite a bit he was also prescribed an oral prednisone previously. For the most part he is not having that much pain states today it is about a 1 on a scale of 1-10. Has tested it out been very active outside walking in the [place], chopping wood and very physically active. For the most part his knee feels pretty good some days it is a little worse than others. He denies any esteban locking or catching in the knee he has mild crepitation through the arc of motion but no effusion or swelling lot of the pain is localized to the posterior knee when he has or is having a bad day. Right now he is feeling good he comes in today for recheck and talk about further options in the future if necessary. He is getting ready to go on a vacation and wanted to be seen before he went. MUNIRA Benitez [address], [place], [address], [employer] 05/10/2024 09:52:36
--- NOTE | 2024-06-04 09:44 | ECG_ITS ---
Test Date: 2024-06-04 09:49:51 Measurements Intervals [place] Rate: 67 P: 40 OR: 159 QRS: 46 QRSD: 91 T: 22 QT: 367 QTc: 390 Interpretive Statements SINUS RHYTHM INCOMPLETE RIGHT BUNDLE BRANCH BLOCK BORDERLINE ECG No previous ECG available for comparison Electronically Signed On 06-04-2024 10:02:20 [employer] DEVEL[employer] by Tino Olmedo D.O.
[2024-06-04 09:55] LABS: Anion Gap 10 mmol/L (4-12); Blood Urea Nitrogen 17 mg/dL (9-20); Calcium 9.4 mg/dL (8.4-10.2); Carbon Dioxide 28 mmol/L (22-30); Chloride 103 mmol/L (98-107); Estimated Glomerular Filt Rate > 60; Glucose 99 mg/dL (65-110); Potassium 4.5 mmol/L (3.4-5.0); Sodium 141 mmol/L (137-145)
== END 2024-06-04 09:09 | disposition home or self-care (01) ==
PROVIDERS: PCP Internal Medicine; Visit Provider Nurse Anesthetist, Certified Registered
DX: Z01.818 Encounter for other preprocedural examination (principal); R94.31 Abnormal electrocardiogram [ECG] [EKG]
CPT/HCPCS: 36415; 80048; 93005